=== PATIENT | male | born 1985 | race Caucasian/White ===

== ENCOUNTER 2018-05-14 23:20 | Emergency (ER) | payer OTHER ==
[~2018-05-14] VITALS: Ht 188 cm; Wt 68.1 kg
[~2018-05-14 23:20] MED LIST: NOHOMEMEDS
[2018-05-15 02:00] VITALS: BP 110/59
[2018-05-15] MEDS ORDERED: NARCAN4 MG NS (02:47)
== END 2018-05-15 03:15 ==
LOC: EME → EDBD 23:20 → EME 05-15 03:15
PROVIDERS: Emergency Medicine
DX: T40.1X1A Poisoning by heroin, accidental (unintentional), initial encounter (principal); R00.0 Tachycardia, unspecified; F17.200 Nicotine dependence, unspecified, uncomplicated
CPT/HCPCS: 82948; 93005